=== PATIENT | female | born 1960 | race Hispanic/Latino ===

== ENCOUNTER → 2020-01-24 | Day surgery (SDC) | payer OTHER ==
[~2020-01-24] MED LIST: ASPIRIN81 MG; ATORVASTATIN CA20 MG PO; CLARITIN; DEXMEDETOMIDINE HCL 2 ML ONE; DONNATAL/LIDOCAINE/MAALOX 30 ML SUSP PO ONE; FENTANYL CITRATE/PF 100MCG/2 ML INJ ONE; LIDOCAINE HCL 2% LOCAL INJ 5 ML SDV VIAL INJ ONE; LOSARTAN POTAS100 MG PO; METFORMIN HCL850 MG PO; MIDAZOLAM HCL 2 MG/2 ML VIAL ONE; OMEPRAZOLE40 MG; PROPOFOL IV EMULSION 10 MG/ML 50 ML VIAL ONE; SODIUM CHLORIDE 0.9% 50ML 50 ML ONE
--- OUTSIDE RECORDS SUMMARY | 2020-01-24 07:06 | XMS REPORT ---
[facility] [place] Address Unknown Phone Unavailable Care Team Providers Care Bell Captain Name Role Phone UNKNOWN, REFFERING PP Unavailable Rajendra BUITRAGO Unavailable Unavailable Problems This patient has no known problems. Allergies, Adverse Reactions, Alerts This patient has no known allergies or adverse reactions. Medications This patient has no known medications. Encounters Start Date/Time End Date/Time Encounter Type Admission Type Attending Clinicians Care Facility Care Department Encounter ID 2017-10-30 07:36:00 2017-10-30 07:36:00 Outpatient C IFTIKHAR BUITRAGO [facility] MED [id number] Results Test Description Test Time Test Comments Text Results Atomic Results Result Comments SCR MAMM BILATERAL FRANK CAD DIGITAL 2019-12-28 08:03:29 - SCR MAMM BILATERAL FRANK CAD DIGITALBILATERAL DIGITAL SCREENING MAMMOGRAM 3D/2D WITH CAD: 12/27/2019CLINICAL: Asymptomatic. Digital breast tomosynthesis was performed in addition to routine CC and MLO views. Current mammographic images were evaluated by either a [employer] M-Vu or a [employer] ImageChecker CAD (computer aided detection system). Comparison is made to exams dated 11/13/2018 mammogram, 2017 mammogram - [facility], and 05/02/2009 mammogram - [facility]. The tissue of both breasts is heterogeneously dense. This may lower the sensitivity of mammography. Questionable asymmetry versus superimposition of the breast tissue in the left breast only seen in the craniocaudal view retroareolar plane approximately 7 cm from the nipple.No suspicious mass, architectural distortion, malignant type calcification, or lymph node abnormality detected in the right breast. IMPRESSION: INCOMPLETE: ADDITIONAL IMAGING EVALUATION NEEDEDQuestionable asymmetry versus superi mposition of the breast tissue in the left breast only seen in the craniocaudal view retroareolar plane approximately 7 cm from the nipple. Spot compression tomosynthesis and possible ultrasound is recommended at this time.Jeremie Dorsey M.D. ss/:12/28/2019 08:03:29 Sales Representative [employer]: Aziza MCLAUGHLIN, [facility] sent: Additional Imaging Mammogram BI-RADS: 0 Incomplete: Additional Imaging Evaluation Needed SCR MAMM BILATERAL FRANK CAD DIGITAL 2018-11-16 08:32:44 - SCR MAMM BILATERAL FRANK CAD DIGITALBILATERAL DIGITAL SCREENING MAMMOGRAM 3D/2D WITH CAD: 11/13/2018CLINICAL: Asymptomatic. Digital breast tomosynthesis was performed in addition to routine CC and MLO views. Current mammographic images were evaluated by either a [employer] M-Vu or a [employer] ImageChecker CAD (computer aided detection system). Comparison is made to exams dated 11/07/2017 mammogram - [facility], 05/02/2009 mammogram - [facility], and 04/01/2006 mammogram - [facility]. The tissue of both breasts is heterogeneously dense. This may lower the sensitivity of mammography. No suspicious mass, architectural distortion, malignant type calcification, or lymph node abnormality detected. Breast architecture is stable compared to prior exams.IMPRESSION: NEGATIVEThere is no mammographic evidence of malignancy. Resume annual screening mammography in one year. Jeremie Dorsey M.D. ss/penrad:11/16/2018 08:32:44 Sales Representative [employer]: Phoebe Grant FW RT(M), [facility] sent: BIRADS 1-2 Normal Mammogram BI- RADS: 1 Negative Mounika-Rapid Urea (H.Pylori) 2017-10-30 19:26:00 Specimen: BiopsyCollected: 10/30/2017 10:41 Status: Final Last Updated: 10/30/2017 19:26 H. pylori (1 hour) (Final) (Final) Rapid urease negative H. pylori (4 hours) (Final) (Final) Rapid urease negative POC Glucose, Blood 2017-10-30 09:47:00 POC Glucose (test code=POCGLUC) 100 mg/dL 70-115 If you consider your patient critically ill, the [facility] Accu-Chek InformII metershould not be used for Glucose determinations.Draw a venous Glucose and send to the Main Lab for Analysis.
[2020-01-24 08:35] VITALS: BP 100/50
--- NOTE | 2020-01-24 09:04 | Operative Report ---
DATE OF PROCEDURE: 01/24/2020 SURGEON: Tai Darden MD PROCEDURE: EGD with biopsies. INDICATIONS FOR EGD: Upper abdominal pain, nausea, bloating. MEDICATIONS: The patient was done under MAC. Please see anesthesiologist's note. PROCEDURE IN DETAIL: With the patient in left lateral decubitus position, the flexible fiberoptic Olympus gastroscope was introduced into the esophagus under direct visualization without any difficulty. There was some patchy erythema noted in distal esophagus. A minute tongue of velvety red mucosa was noted to extend proximally from the GE junction that was biopsied. The scope was then advanced with ease into the stomach traversing a small sliding hiatal hernia. Mucosa overlying the antrum and the body revealed some patchy erythema and [id number] edema, and biopsies were obtained and sent to stain for H pylori. The pylorus was of normal contour and shape, was intubated with ease, and the scope was advanced all the way to the second portion of the duodenum. Biopsies were obtained from the proximal second portion and duodenal bulb to rule out sprue. The scope was then withdrawn back into the stomach and retroflexed, and the mucosa overlying the fundus and cardia appeared to be within normal limits. The scope was then straightened out. It was subsequently withdrawn. The patient tolerated the procedure well. IMPRESSION: 1. Distal esophagitis, mild. 2. Rule out West esophagus. 3. Small sliding hiatal hernia. 4. Gastritis, biopsied, biopsies sent to stain for H pylori. 5. Rule out sprue. PLAN: Follow up histology. Increase omeprazole to 40 mg one p.o. a.c. b.i.d. Tai Darden MD [facility] [place]/MODL /[id number] cc: Dr. Ryland Mascorro
== END | disposition home or self-care (01) ==
LOC: OR 06:18
PROVIDERS: ATTEND Internal Medicine Gastroenterology
DX: K29.50 Unspecified chronic gastritis without bleeding (principal); K20.9 Esophagitis, unspecified; K21.9 Gastro-esophageal reflux disease without esophagitis; K44.9 Diaphragmatic hernia without obstruction or gangrene; K59.09 Other constipation; E11.9 Type 2 diabetes mellitus without complications; I10 Essential (primary) hypertension; E78.5 Hyperlipidemia, unspecified; J45.909 Unspecified asthma, uncomplicated; F41.9 Anxiety disorder, unspecified; Z88.8 Allergy status to other drugs, medicaments and biological substances; Z01.810 Encounter for preprocedural cardiovascular examination; Z79.84 Long term (current) use of oral hypoglycemic drugs; Z79.82 Long term (current) use of aspirin
CPT/HCPCS: 36415; 43239; 82948; 93005; J2001; J2250; J2704; J3010